=== PATIENT | female | born 1980 | race Caucasian/White ===

== ENCOUNTER 2017-01-04 18:20 | Emergency (ER) | payer OTHER ==
[2017-01-04 18:38] VITALS: BP 142/92; PULSE 74; RESP 16; O2SAT 98
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
== END 2017-01-04 18:55 | disposition home or self-care (01) ==
LOC: CED 18:20
DX: G44.309 Post-traumatic headache, unspecified, not intractable (principal); F07.81 Postconcussional syndrome